=== PATIENT | female | born 1950 | race Caucasian/White ===

== ENCOUNTER 2017-02-09 17:14 | Emergency (ER) | payer MEDICARE, OTHER ==
[2017-02-09 17:44] LABS: BASOPHILS % 0.9 (0.0-1.5); EOSINOPHILS % 7.9 % (0.0-6.8); MEAN CORPUSCULAR HEMOGLOBIN 30.8 pg (28.0-34.0); MEAN CORPUSCULAR VOLUME 100.7 fl (80.0-100.0); MONOCYTES % 4.5 % (0.0-11.0); NEUTROPHILS # 3.8 # k/uL (1.4-7.7)
[2017-02-09 18:03] LABS: eGFR (African) 36; eGFR (Non-African) 30
--- NOTE | 2017-02-09 18:15 | Diagnostic Imaging Report ---
DONNA GASTELUM (MOVIE SHOT CAMERAMAN) - ER [facility] [address] [facility] [address] [place], [place]. [address] Report Submission Date: Feb 09, 2017 6:02:03 PM CDT Patient Study Name: ZOYA MARTIN Date: Feb 09, 2017 5:44:32 PM CDT Modality Type: CR Gender: F Description: CHEST : 52 Institution: [facility] Physician: DONNA GASTELUM (JASWINDER) - ER Examination: PA and lateral chest. History: Evaluate lung mcclure. Comparison exam: None available Findings: PA lateral chest demonstrate a normal cardiac and mediastinal silhouette. Chronic parenchymal and apical emphysematous changes. No focal infiltrate. No blunting of the costophrenic margins. Osseous structures are appropriate for age. Impression: Emphysematous changes. No acute pulmonary process. Electronically signed on Feb 09, 2017 6:02:03 PM CDT by: Yang STRINGER
--- NOTE | 2017-02-09 18:52 | ED Physician Documentation ---
Dyspnea - HISTORIAN Historian: patient - HPI Stated Complaint: SOA Chief Complaint: Dyspnea Onset: days ago (monday) Duration: worse Initiating Event: upper respiratory illness Severity: moderate Exacerbated By: coughing Associated Symptoms: chills, fever Further Comments: yes (66 year old female patient brought in by EMS for evaluation of dyspnea. Call from [place], reports patient was started on rocephin 1G IV yesterday and 500mg azithromycin per PCP. Reports chest xray showed infiltrate. Patient states she was no better, requested evaluation in ER. EMS gave albuterol neb in route. Patient reports neb "helped my breathing ". Sat 95% on 3L NC on arrival.) - ROS CONST: recent illness, weakness EYES/ENT: nasal drainage, nasal congestion. denies: problems with vision, sore throat GI/: none NEURO/PSYCH: denies: headache MS/SKIN/LYMPH: none - PAST HX Lung Disease: COPD, other (CVA, migraines) Cardiac Disease: CHF, other (HTN, HLD) PE Risk Factors: hypertension Other History: CVA, hyperlipidemia, other (anxiety, GERD, daily O2 at 3L) Allergies/Adverse Reactions: Allergies Allergy/AdvReac Type Severity Reaction Status Date / Time No Known Allergies Allergy Verified 02/09/17 18:52 Home Medications: Ambulatory Orders Medication Instructions Recorded Atorvastatin Calcium 20 mg PO QDAY 02/09/17 Budesonide/Formoterol Fumarate 1 puff PO BID 02/09/17 [Symbicort 160-4.5 Mcg Inhaler] Clonazepam 0.5 mg PO HS 02/09/17 Donepezil HCl [Aricept] 5 mg PO HS 02/09/17 Furosemide [Lasix] 20 mg PO DAILY 02/09/17 Gabapentin [Neurontin] 100 mg PO TID 02/09/17 HYDROcodone /APAP 5/325 [[place] 1 tab PO HS 02/09/17 5/325] Lansoprazole [Prevacid] 1 cap PO QDAY 02/09/17 Linaclotide [Linzess] 290 mcg PO QDAY 02/09/17 Lisinopril [Zestril] 30 mg PO HS 02/09/17 Melatonin [Melatin] 3 mg PO HS 02/09/17 Mirtazapine [Remeron] 7.5 mg PO HS 02/09/17 PARoxetine HCL [Paxil] 20 mg PO QD 02/09/17 Topiramate [Topamax] 50 mg PO BID 02/09/17 Trazodone HCl [Trazodone HCl] 1 tab PO HS 02/09/17 Venlafaxine HCl [Effexor Xr] 75 mg PO QDAY 02/09/17 - SOCIAL HX Smoking History: cigarettes - FAMILY HX Family History: denies: none - VITAL SIGNS Vital Signs: Vital Signs Temp Pulse Resp BP Pulse Ox 98.2 F 72 18 161/50 99 02/09/17 17:15 02/09/17 17:15 02/09/17 17:15 02/09/17 17:15 02/09/17 17:15 - REVIEWED ASSESSMENTS Nursing Assessment Reviewed: Yes Vitals Reviewed: Yes Progress - Progress Progress: Chest Xray with early or improving infiltrate. Encouraged patient to request PRN duonebs. ED Results Lab/Radiology - Lab Results Lab Results: Lab Results 02/09/17 02/09/17 17:30 17:30 WBC 6.80 K/ul K/ul (4.00-12.00) RBC 3.15 M/ul L M/ul (3.90-5.20) Hgb 9.7 g/dL L g/dL (12.0-16.0) Hct 31.7 % L % (34.5-46.5) MCV 100.7 fl H fl (80.0-100.0) MCH 30.8 pg pg (28.0-34.0) MCHC 30.6 g/dL g/dL (30.0-36.0) RDW 12.9 % % (11.3-14.3) Plt Count 270 K/mm3 K/mm3 (130-400) Neut % (Auto) 56.8 % % (39.0-79.0) Lymph % (Auto) 26.5 % % (16.0-50.0) [place] % (Auto) 4.5 % % (0.0-11.0) Eos % (Auto) 7.9 % H % (0.0-6.8) Baso % (Auto) 0.9 (0.0-1.5) Neut # (Auto) 3.8 # k/uL # k/uL (1.4-7.7) Lymph # (Auto) 1.8 # k/uL # k/uL (0.6-4.0) [place] # (Auto) 0.3 # k/uL # k/uL (0.0-0.9) Eos # (Auto) 0.5 # k/uL # k/uL (0.0-0.6) Baso # (Auto) 0.1 # k/uL # k/uL (0.0-0.5) Reactive Lymphs % 3.3 % % (0.0-5.0) Reactive Lymphs # 0.2 # k/uL # k/uL (0.0-0.8) Sodium 138 mmol/L mmol/L (137-145) Potassium 4.3 mmol/L mmol/L (3.5-5.1) Chloride 102 mmol/L mmol/L (98-107) Carbon Dioxide 29 mmol/L mmol/L (22-30) BUN 22 mg/dL H mg/dL (7-17) Creatinine 1.80 mg/dL H mg/dL (0.52-1.04) Estimated Creat Clear 32 Est GFR ( Amer) 36 L (60 - ) Est GFR (Non-Af Amer) 30 L (60 - ) Glucose 75 mg/dL mg/dL (74-106) Calcium 8.4 mg/dL mg/dL (8.4-10.2) Total Bilirubin < 0.1 mg/dL L mg/dL (0.2-1.3) AST 23 U/L U/L (15-46) ALT 29 U/L U/L (13-69) Alkaline Phosphatase 92 U/L U/L (38-126) Total Protein 6.3 g/dL g/dL (6.3-8.2) Albumin 3.3 g/dL L g/dL (3.5-5.0) - Radiology Radiology Impressions: Examination: PA and lateral chest. History: Evaluate lung mcclure. Comparison exam: None available Findings: PA lateral chest demonstrate a normal cardiac and mediastinal silhouette. Chronic parenchymal and apical emphysematous changes. No focal infiltrate. No blunting of the costophrenic margins. Osseous structures are appropriate for age. Impression: Emphysematous changes. No acute pulmonary process. - Orders Orders: ED Orders Category Date Time Status CHEST 2 VIEW [CHEST P.A.&LAT 2 VIEWS] [RAD] Stat Exams 02/09/17 Completed CBC/PLATELET/DIFF Routine Lab 02/09/17 17:30 Completed CMP [CMP] Routine Lab 02/09/17 17:30 Completed Dyspnea Physical Exam - EXAM General Appearance: mild distress EENT: eye inspection normal, ENT inspection normal, pharynx normal, no signs of dehydration, LESLI, no nystagmus, TM's nml Respiratory: no resp. distress, breath sounds nml, no pain on inspiration, speaks full sentences, other (3L NC; Sat 95-99%) CVS: reg. 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 Use patient's PRN Duoneb at least q6h for the next 4 days. Condition: Stable Disposition: 01 HOME, SELF-CARE Decision to Admit: NO Decision Time: 18:51
[2017-02-09 19:11] VITALS: BP 150/61
== END 2017-02-09 19:09 | disposition home or self-care (01) ==
LOC: ED 17:14
DX: J18.1 Lobar pneumonia, unspecified organism (principal)
CPT/HCPCS: 36415; 71020; 80053; 85025; 99283

== ENCOUNTER 2017-11-10 15:05 | Inpatient (IN) | payer MEDICARE, OTHER ==
[2017-11-10] MEDS ORDERED: methylPREDNISolone SOD SUCC 125 MG/2 ML VIAL IVP ONE (15:23)
[2017-11-10] MEDS ORDERED: 0.9 % SODIUM CHLORIDE 1,000 ML IV ONE (15:23)
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
[2017-11-10 16:23] LABS: MEAN CORPUSCULAR HEMOGLOBIN 30.2 pg (28.0-34.0); MEAN CORPUSCULAR VOLUME 104.6 fl (80.0-100.0)
[2017-11-10 16:35] LABS: eGFR (African) 26; eGFR (Non-African) 22
[2017-11-10] MEDS ORDERED: cefTRIAXone SODIUM 1 GM in 0.9 % SODIUM CHLORIDE 100 ML IV ONE (16:40)
[2017-11-10] MEDS ORDERED: cefTRIAXone SODIUM 1 GM VIAL ONE (16:48)
[2017-11-10] MEDS ORDERED: 0.9 % SODIUM CHLORIDE 100 ML IV ONE (16:49)
[2017-11-10 17:33] LABS: SEGMENTED NEUTROPHILS % 88 % (39-79)
[2017-11-10 17:34] LABS: ANISOCYTOSIS 1+ (NEGATIVE); MONOCYTES % 3 % (0-11); TOXIC VACUOLATION SLIGHT
[2017-11-10] MEDS ORDERED: IPRATROPIUM/ALBUTEROL SULFATE 3 ML AMPUL.NEB NEB PRN (18:49)
--- NOTE | 2017-11-10 18:53 | Diagnostic Imaging Report ---
ALFREDA JERRY [facility] [place] [facility] [address] [facility] [address] [place], [place]. [address] Report Submission Date: Nov 10, 2017 3:42:52 PM CDT Patient Study Name: ZOYA MARTIN Date: Nov 10, 2017 3:10:29 PM CDT Modality Type: DX Gender: F Description: CHEST : 52 Institution: [facility] [place] [facility] Physician: ALFREDA JERRY Examination: Portable chest History: Evaluate lungs. PCXR, COPD, SOA (Hx) Comparison exam: 09 February 2017 Findings: Single view of the chest demonstrates a normal cardiac silhouette. Prominent right hilum. Diffuse increased interstitial markings/infiltrates, right greater than left. Articular degenerative disease. Impression: Diffuse, right greater than left, parenchymal infiltrates. Consider obtaining a formal PA and lateral film to better evaluate lung mcclure. Electronically signed on Nov 10, 2017 3:42:52 PM CDT by: Yang STRINGER
[2017-11-10] MEDS ORDERED: ACETAMINOPHEN 500 MG TABLET PO PRN (19:24)
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
[2017-11-10] MEDS: cefTRIAXone SODIUM 1 GM in 0.9 % SODIUM CHLORIDE 50 ML IV SCH (19:37)
[2017-11-10] MEDS ORDERED: CLONAZEPAM PO SCH ×2 (21:00)
[2017-11-10] MEDS ORDERED: BUDESONIDE PO SCH (21:00)
[2017-11-10] MEDS ORDERED: FUROSEMIDE 40 MG TABLET PO SCH (21:00)
[2017-11-10] MEDS ORDERED: [UNRECOGNIZED DRUG - OTHER] PO SCH (21:00)
[2017-11-10] MEDS ORDERED: DONEPEZIL HCL PO SCH (21:00)
[2017-11-10] MEDS ORDERED: FORMOTEROL FUMARATE PO SCH (21:00)
[2017-11-10] MEDS: GABAPENTIN 100 MG CAPSULE PO SCH (21:33)
[2017-11-10] MEDS: 0.9 % SODIUM CHLORIDE 1,000 ML IV SCH (21:33)
[2017-11-10] MEDS: ATORVASTATIN CALCIUM 80 MG TABLET PO SCH ×2 (21:35)
[2017-11-10] MEDS: FLUTICASONE/SALMETEROL 250-50 INHALER IH SCH ×2 (21:38)
[2017-11-10] MEDS: traZODone HCL 50 MG TABLET PO SCH ×2 (21:39)
[2017-11-10] MEDS: MELATONIN 3 MG TABLET PO SCH ×2 (21:39)
[2017-11-10] MEDS: MIRTAZAPINE 15 MG TABLET PO SCH ×2 (21:40)
[2017-11-10] MEDS: risperiDONE 0.5 MG TABLET PO SCH ×2 (21:41)
[2017-11-10] MEDS: TOPIRAMATE 50 MG TABLET PO SCH ×2 (21:41)
[2017-11-10] MEDS: FUROSEMIDE 40 MG TABLET PO SCH (21:42)
[2017-11-10] MEDS: DONEPEZIL HCL 5 MG TABLET PO SCH (21:42)
[2017-11-10] MEDS: HYDROcodone /APAP 5/325 1 EACH TABLET PO SCH (21:42)
[2017-11-10] MEDS: AZITHROMYCIN 500 MG in 0.9 % SODIUM CHLORIDE 250 ML IV SCH (21:52)
[2017-11-10] MEDS: clonazePAM 0.5 MG TABLET PO SCH ×2 (22:09→22:10)
[2017-11-10 22:30] VITALS: BMI 25.2
[2017-11-11 07:18] LABS: EOSINOPHILS % 0.1 % (0.0-6.8); MEAN CORPUSCULAR HEMOGLOBIN 30.4 pg (28.0-34.0); MEAN CORPUSCULAR VOLUME 104.4 fl (80.0-100.0); NEUTROPHILS # 9.4 # k/uL (1.4-7.7)
[2017-11-11 07:24] LABS: eGFR (African) 27; eGFR (Non-African) 23
[2017-11-11] MEDS: 0.9 % SODIUM CHLORIDE 1,000 ML IV SCH ×2 (07:44→16:08)
[2017-11-11] MEDS ORDERED: Non-Formulary 1 EACH (Atorvastatin Calcium [Atorvastatin Calcium] 20 MG) PO SCH (09:00)
[2017-11-11] MEDS ORDERED: DOCUSATE SODIUM 100 MG CAPSULE PO SCH (09:00)
[2017-11-11] MEDS ORDERED: clonazePAM 0.5 MG TABLET PO SCH ×2 (09:00→12:00)
[2017-11-11] MEDS: DOCUSATE SODIUM 100 MG CAPSULE PO SCH (09:26)
[2017-11-11] MEDS: GABAPENTIN 100 MG CAPSULE PO SCH ×3 (09:26→17:58)
[2017-11-11] MEDS: LISINOPRIL 20 MG TABLET PO SCH (09:26)
[2017-11-11] MEDS: TOPIRAMATE 50 MG TABLET PO SCH ×2 (09:26→20:41)
[2017-11-11] MEDS: FLUTICASONE/SALMETEROL 250-50 INHALER IH SCH (09:27)
[2017-11-11] MEDS: FUROSEMIDE 40 MG TABLET PO SCH ×2 (09:27→20:38)
--- NOTE | 2017-11-11 11:52 | Inpatient Progress Note ---
Subjective - Required Recertification Statement I anticipate X number of days because-include discharge plan: 2 - Review of Systems Subjective: Patient reports she "needs her inhalers." STill coughing. STill with SOB. Objective - Exam Vitals and I&O: Vital Signs Temp 98.4 F 11/11/17 10:00 Pulse 82 11/11/17 10:08 Resp 24 11/11/17 10:00 BP 117/40 11/11/17 10:00 Pulse Ox 98 11/11/17 10:00 Intake & Output 11/10/17 11/10/17 11/11/17 11:59 23:59 11:59 Intake Total 2734 Balance 2734 Weight 62.596 kg 61.689 kg Intake: IV 2254 Left Forearm 2254 Oral 480 Other: Voiding Method Toilet Toilet # Voids 3 General: Alert, Oriented to Person, Oriented to Place, Cooperative, No acute distress. No: Oriented to Time Lungs: Speaks full Sentences, Wheezes Cardiovascular: Regular rate - Results Results: Laboratory Results WBC 10.20 K/ul (4.00-12.00) 11/11/17 07:00 RBC 2.61 M/ul (3.90-5.20) L 11/11/17 07:00 Hgb 8.0 g/dL (12.0-16.0) L 11/11/17 07:00 Hct 27.3 % (34.5-46.5) L 11/11/17 07:00 MCV 104.4 fl (80.0-100.0) H 11/11/17 07:00 MCH 30.4 pg (28.0-34.0) 11/11/17 07:00 MCHC 29.2 g/dL (30.0-36.0) L 11/11/17 07:00 RDW 13.4 % (11.3-14.3) 11/11/17 07:00 Plt Count 137 K/mm3 (130-400) 11/11/17 07:00 Neut % (Auto) 92.1 % (39.0-79.0) H 11/11/17 07:00 Lymph % (Auto) 3.7 % (16.0-50.0) L 11/11/17 07:00 [place] % (Auto) 3.0 % (0.0-11.0) 11/11/17 07:00 Eos % (Auto) 0.1 % (0.0-6.8) 11/11/17 07:00 Baso % (Auto) 0.0 (0.0-1.5) 11/11/17 07:00 Neut # (Auto) 9.4 # k/uL (1.4-7.7) H 11/11/17 07:00 Lymph # (Auto) 0.4 # k/uL (0.6-4.0) L 11/11/17 07:00 [place] # (Auto) 0.3 # k/uL (0.0-0.9) 11/11/17 07:00 Eos # (Auto) 0.0 # k/uL (0.0-0.6) 11/11/17 07:00 Baso # (Auto) 0.0 # k/uL (0.0-0.5) 11/11/17 07:00 Seg Neutrophils % 88 % (39-79) H 11/10/17 16:10 Band Neutrophils % 2 % (0-12) 11/10/17 16:10 Lymphocytes % 7 % (16-50) L 11/10/17 16:10 Reactive Lymphs % 1.0 % (0.0-5.0) 11/11/17 07:00 Monocytes % 3 % (0-11) 11/10/17 16:10 Reactive Lymphs # 0.1 # k/uL (0.0-0.8) 11/11/17 07:00 Toxic Vacuolation Slight 11/10/17 16:10 Plt Morphology Comment Normal (NORMAL) 11/10/17 16:10 Anisocytosis 1+ (NEGATIVE) H 11/10/17 16:10 PT 12.6 Seconds (9.4-11.6) H 11/11/17 06:00 INR 1.20 (0.9-1.2) 11/11/17 06:00 Sodium 142 mmol/L (136-145) 11/11/17 07:00 Potassium 4.4 mmol/L (3.5-5.1) 11/11/17 07:00 Chloride 112 mmol/L (98-107) H 11/11/17 07:00 Carbon Dioxide 22 mmol/L (22-30) 11/11/17 07:00 BUN 45 mg/dL (7-17) H 11/11/17 07:00 Creatinine 2.30 mg/dL (0.52-1.04) H 11/11/17 07:00 Estimated Creat Clear 27 11/11/17 07:00 Est GFR ( Amer) 27 (60-) L 11/11/17 07:00 Est GFR (Non-Af Amer) 23 (60-) L 11/11/17 07:00 Glucose 105 mg/dL (74-106) 11/11/17 07:00 Calcium 8.3 mg/dL (8.4-10.2) L 11/11/17 07:00 Total Bilirubin < 0.1 mg/dL (0.2-1.3) L 11/11/17 07:00 AST 19 U/L (15-46) 11/11/17 07:00 ALT 25 U/L (13-69) 11/11/17 07:00 Alkaline Phosphatase 64 U/L (38-126) 11/11/17 07:00 Creatine Kinase 124 U/L (30-135) 11/10/17 16:10 Troponin I < 0.03 ng/mL (0.03-0.06) L 11/10/17 16:10 NT-Pro-B Natriuret Pep 1522.9 pg/mL (15.0-125.0) H 11/10/17 16:10 Total Protein 5.9 g/dL (6.3-8.2) L 11/11/17 07:00 Albumin 2.9 g/dL (3.5-5.0) L 11/11/17 07:00 Assessment/Plan - Assessment/Plan (1) COPD exacerbation Status: Acute Current Visit: Yes Plan: Will hold off on inhaled steroids and do IV. Scheduled duonebs. (2) Pneumonia Status: Acute Current Visit: Yes Qualifiers: Pneumonia type: due to unspecified organism Laterality: bilateral Lung location: unspecified part of lung Qualified Code(s): J18.9 - Pneumonia, unspecified organism Assessment: Repeat 2 view CXR today. When taking good Po intake will change to oral antibiotics. Try to get sputum cultures.
[2017-11-11] MEDS: IPRATROPIUM/ALBUTEROL SULFATE 3 ML AMPUL.NEB NEB SCH ×3 (12:43→21:00)
[2017-11-11] MEDS: LORazepam 0.5 MG TABLET PO SCH ×2 (12:49→20:40)
--- NOTE | 2017-11-11 16:09 | Diagnostic Imaging Report ---
TRUPTI QUINTERO [facility] [address] [facility] [address] [address] Report Submission Date: Nov 11, 2017 1:39:41 PM CDT Patient Study Name: ZOYA MARTIN Date: Nov 11, 2017 1:04:06 PM CDT Modality Type: DX Gender: F Description: CHEST : 52 Institution: [facility] Physician: TRUPTI QUINTERO Chest two views History: Pneumonia, dyspnea, wheezing Findings: Extensive right lung and minimal left basilar infiltrate is unchanged since yesterday. Hyperinflation and a small right parapneumonic effusion are observed. Heart size is normal. Impression: 1. Right greater than left pneumonia. 2. Emphysema. 3. No change since yesterday. Electronically signed on Nov 11, 2017 1:39:41 PM CDT by: Erick STRINGER
[2017-11-11] MEDS ORDERED: cefTRIAXone SODIUM 1 GM VIAL ONE (17:46)
[2017-11-11] MEDS: cefTRIAXone SODIUM 1 GM in 0.9 % SODIUM CHLORIDE 50 ML IV SCH (17:58)
[2017-11-11] MEDS: AZITHROMYCIN 500 MG in 0.9 % SODIUM CHLORIDE 250 ML IV SCH (19:08)
[2017-11-11] MEDS: MELATONIN 3 MG TABLET PO SCH (20:37)
[2017-11-11] MEDS: risperiDONE 0.5 MG TABLET PO SCH (20:37)
[2017-11-11] MEDS: ATORVASTATIN CALCIUM 80 MG TABLET PO SCH (20:38)
[2017-11-11] MEDS: traZODone HCL 50 MG TABLET PO SCH (20:38)
[2017-11-11] MEDS: MIRTAZAPINE 15 MG TABLET PO SCH (20:40)
[2017-11-11] MEDS: HYDROcodone /APAP 5/325 1 EACH TABLET PO SCH (20:40)
[2017-11-11] MEDS: DONEPEZIL HCL 5 MG TABLET PO SCH (20:45)
[2017-11-11] MEDS ORDERED: methylPREDNISolone SOD SUCC 40 MG/ML VIAL ONE (20:45)
[2017-11-11] MEDS: methylPREDNISolone SOD SUCC 40 MG/ML VIAL IVP SCH (20:47)
[2017-11-12] MEDS: IPRATROPIUM/ALBUTEROL SULFATE 3 ML AMPUL.NEB NEB SCH ×6 (01:34→20:36)
[2017-11-12] MEDS ORDERED: methylPREDNISolone SOD SUCC 40 MG/ML VIAL ONE ×2 (01:39→11:10)
[2017-11-12] MEDS: 0.9 % SODIUM CHLORIDE 1,000 ML IV SCH ×2 (05:57→12:14)
[2017-11-12 07:16] LABS: MEAN CORPUSCULAR HEMOGLOBIN 30.5 pg (28.0-34.0); MEAN CORPUSCULAR VOLUME 99.1 fl (80.0-100.0)
[2017-11-12 07:34] LABS: HYPOCHROMASIA 1+ (NEGATIVE); SEGMENTED NEUTROPHILS % 97 % (39-79)
[2017-11-12] MEDS: DOCUSATE SODIUM 100 MG CAPSULE PO SCH (09:05)
[2017-11-12] MEDS: FUROSEMIDE 40 MG TABLET PO SCH ×2 (09:05→20:38)
[2017-11-12] MEDS: GABAPENTIN 100 MG CAPSULE PO SCH ×3 (09:05→17:59)
[2017-11-12] MEDS: LORazepam 0.5 MG TABLET PO SCH ×3 (09:09→20:37)
[2017-11-12] MEDS: LISINOPRIL 20 MG TABLET PO SCH (09:10)
[2017-11-12] MEDS: TOPIRAMATE 50 MG TABLET PO SCH ×2 (09:11→20:42)
[2017-11-12] MEDS: methylPREDNISolone SOD SUCC 40 MG/ML VIAL IVP SCH ×3 (09:35→20:44)
--- NOTE | 2017-11-12 10:57 | Inpatient Progress Note ---
Subjective - Required Recertification Statement I anticipate X number of days because-include discharge plan: 2 - Review of Systems Subjective: Patient reports she feels some better. Cough is improved but still has wheezing. Appetite better. Objective - Exam Vitals and I&O: Vital Signs Temp 98.8 F 11/12/17 08:20 Pulse 86 11/12/17 10:00 Resp 24 11/12/17 08:20 BP 154/70 11/12/17 08:20 Pulse Ox 96 11/12/17 08:20 Intake & Output 11/11/17 11/11/17 11/12/17 11:59 23:59 11:59 Intake Total 2734 300 3160 Balance 2734 300 3160 Weight 61.689 kg 63.049 kg Intake: IV 2254 2900 Left Forearm 2254 2900 Oral 480 300 260 Other: Voiding Method Toilet Toilet Toilet # Voids 3 2 2 # Bowel Movements 1 General: Alert, Oriented to Person, Oriented to Place, Cooperative, No acute distress. No: Oriented to Time Lungs: Wheezes Cardiovascular: Regular rate Abdomen: Normal bowel sounds - Results Results: Laboratory Results WBC 7.00 K/ul (4.00-12.00) 11/12/17 07:05 RBC 2.39 M/ul (3.90-5.20) L 11/12/17 07:05 Hgb 7.3 g/dL (12.0-16.0) L 11/12/17 07:05 Hct 23.7 % (34.5-46.5) L 11/12/17 07:05 MCV 99.1 fl (80.0-100.0) 11/12/17 07:05 MCH 30.5 pg (28.0-34.0) 11/12/17 07:05 MCHC 30.8 g/dL (30.0-36.0) 11/12/17 07:05 RDW 13.8 % (11.3-14.3) 11/12/17 07:05 Plt Count 150 K/mm3 (130-400) 11/12/17 07:05 Neut % (Auto) 92.1 % (39.0-79.0) H 11/11/17 07:00 Lymph % (Auto) 3.7 % (16.0-50.0) L 11/11/17 07:00 [place] % (Auto) 3.0 % (0.0-11.0) 11/11/17 07:00 Eos % (Auto) 0.1 % (0.0-6.8) 11/11/17 07:00 Baso % (Auto) 0.0 (0.0-1.5) 11/11/17 07:00 Neut # (Auto) 9.4 # k/uL (1.4-7.7) H 11/11/17 07:00 Lymph # (Auto) 0.4 # k/uL (0.6-4.0) L 11/11/17 07:00 [place] # (Auto) 0.3 # k/uL (0.0-0.9) 11/11/17 07:00 Eos # (Auto) 0.0 # k/uL (0.0-0.6) 11/11/17 07:00 Baso # (Auto) 0.0 # k/uL (0.0-0.5) 11/11/17 07:00 Seg Neutrophils % 97 % (39-79) H 11/12/17 07:05 Band Neutrophils % 2 % (0-12) 11/12/17 07:05 Lymphocytes % 1 % (16-50) L 11/12/17 07:05 Reactive Lymphs % 1.0 % (0.0-5.0) 11/11/17 07:00 Monocytes % 3 % (0-11) 11/10/17 16:10 Reactive Lymphs # 0.1 # k/uL (0.0-0.8) 11/11/17 07:00 Toxic Vacuolation Slight 11/10/17 16:10 Plt Morphology Comment Normal (NORMAL) 11/12/17 07:05 Hypochromasia 1+ (NEGATIVE) H 11/12/17 07:05 Anisocytosis 1+ (NEGATIVE) H 11/10/17 16:10 RBC Morph Comment Abnormal (NORMAL) H 11/12/17 07:05 PT 12.6 Seconds (9.4-11.6) H 11/11/17 06:00 INR 1.20 (0.9-1.2) 11/11/17 06:00 Sodium 145 mmol/L (136-145) 11/12/17 07:05 Potassium 4.1 mmol/L (3.5-5.1) 11/12/17 07:05 Chloride 114 mmol/L (98-107) H 11/12/17 07:05 Carbon Dioxide 24 mmol/L (22-30) 11/12/17 07:05 BUN 47 mg/dL (7-17) H 11/12/17 07:05 Creatinine 2.30 mg/dL (0.52-1.04) H 11/12/17 07:05 Estimated Creat Clear 28 11/12/17 07:05 Est GFR ( Amer) 27 (60-) L 11/12/17 07:05 Est GFR (Non-Af Amer) 23 (60-) L 11/12/17 07:05 Glucose 132 mg/dL (74-106) H 11/12/17 07:05 Calcium 8.4 mg/dL (8.4-10.2) 11/12/17 07:05 Total Bilirubin < 0.1 mg/dL (0.2-1.3) L 11/11/17 07:00 AST 19 U/L (15-46) 11/11/17 07:00 ALT 25 U/L (13-69) 11/11/17 07:00 Alkaline Phosphatase 64 U/L (38-126) 11/11/17 07:00 Creatine Kinase 124 U/L (30-135) 11/10/17 16:10 Troponin I < 0.03 ng/mL (0.03-0.06) L 11/10/17 16:10 NT-Pro-B Natriuret Pep 1522.9 pg/mL (15.0-125.0) H 11/10/17 16:10 Total Protein 5.9 g/dL (6.3-8.2) L 11/11/17 07:00 Albumin 2.9 g/dL (3.5-5.0) L 11/11/17 07:00 Vitamin B12 >2000 pg/mL (211-946) H 11/10/17 Unknown Folate 4.0 ng/mL (>4.50) L 11/10/17 Unknown Assessment/Plan - Assessment/Plan (1) COPD exacerbation Status: Acute Current Visit: Yes Plan: Will increase solumedrol to 80 mg q8hr IV. Continue duonebs. (2) Pneumonia Status: Acute Current Visit: Yes Qualifiers: Pneumonia type: due to unspecified organism Laterality: bilateral Lung location: unspecified part of lung Qualified Code(s): J18.9 - Pneumonia, unspecified organism Plan: Po intake is better so will change to oral zithromax and augmentin. (3) Anemia Status: Chronic Current Visit: Yes Qualifiers: Anemia type: unspecified type Qualified Code(s): D64.9 - Anemia, unspecified Plan: [place] reports Hgb 7.9 on 10-24. She has an elevated MCV. She takes B12 shots every 2 weeks. Here, her B12 is >2000. Folate here is low so will start replacement. She is on FeSO4 at [facility] [place] but refusing it. Staff there can't find iron studies. Will get these today. May give IV iron prior to d/c. Suspect HBG lower due to fluid hydration. (4) Renal insufficiency Status: Chronic Current Visit: Yes Plan: According to [place], BUN/Cr is normally around 30-40 and 2-3. Will stop IVF today as weight is up some and patient has a h/o CHF.
--- NOTE | 2017-11-12 11:16 | Inpatient Progress Note ---
Subjective - Review of Systems Subjective: Patient reports she "needs her inhalers." STill coughing. STill with SOB. Objective - Exam Vitals and I&O: Vital Signs Temp 98.8 F 11/12/17 08:20 Pulse 86 11/12/17 10:00 Resp 24 11/12/17 08:20 BP 154/70 11/12/17 08:20 Pulse Ox 96 11/12/17 08:20 Intake & Output 11/11/17 11/11/17 11/12/17 11:59 23:59 11:59 Intake Total 2734 300 3160 Balance 2734 300 3160 Weight 61.689 kg 63.049 kg Intake: IV 2254 2900 Left Forearm 2254 2900 Oral 480 300 260 Other: Voiding Method Toilet Toilet Toilet # Voids 3 2 2 # Bowel Movements 1 - Results Results: Laboratory Results WBC 7.00 K/ul (4.00-12.00) 11/12/17 07:05 RBC 2.39 M/ul (3.90-5.20) L 11/12/17 07:05 Hgb 7.3 g/dL (12.0-16.0) L 11/12/17 07:05 Hct 23.7 % (34.5-46.5) L 11/12/17 07:05 MCV 99.1 fl (80.0-100.0) 11/12/17 07:05 MCH 30.5 pg (28.0-34.0) 11/12/17 07:05 MCHC 30.8 g/dL (30.0-36.0) 11/12/17 07:05 RDW 13.8 % (11.3-14.3) 11/12/17 07:05 Plt Count 150 K/mm3 (130-400) 11/12/17 07:05 Neut % (Auto) 92.1 % (39.0-79.0) H 11/11/17 07:00 Lymph % (Auto) 3.7 % (16.0-50.0) L 11/11/17 07:00 [place] % (Auto) 3.0 % (0.0-11.0) 11/11/17 07:00 Eos % (Auto) 0.1 % (0.0-6.8) 11/11/17 07:00 Baso % (Auto) 0.0 (0.0-1.5) 11/11/17 07:00 Neut # (Auto) 9.4 # k/uL (1.4-7.7) H 11/11/17 07:00 Lymph # (Auto) 0.4 # k/uL (0.6-4.0) L 11/11/17 07:00 [place] # (Auto) 0.3 # k/uL (0.0-0.9) 11/11/17 07:00 Eos # (Auto) 0.0 # k/uL (0.0-0.6) 11/11/17 07:00 Baso # (Auto) 0.0 # k/uL (0.0-0.5) 11/11/17 07:00 Seg Neutrophils % 97 % (39-79) H 11/12/17 07:05 Band Neutrophils % 2 % (0-12) 11/12/17 07:05 Lymphocytes % 1 % (16-50) L 11/12/17 07:05 Reactive Lymphs % 1.0 % (0.0-5.0) 11/11/17 07:00 Monocytes % 3 % (0-11) 11/10/17 16:10 Reactive Lymphs # 0.1 # k/uL (0.0-0.8) 11/11/17 07:00 Toxic Vacuolation Slight 11/10/17 16:10 Plt Morphology Comment Normal (NORMAL) 11/12/17 07:05 Hypochromasia 1+ (NEGATIVE) H 11/12/17 07:05 Anisocytosis 1+ (NEGATIVE) H 11/10/17 16:10 RBC Morph Comment Abnormal (NORMAL) H 11/12/17 07:05 PT 12.6 Seconds (9.4-11.6) H 11/11/17 06:00 INR 1.20 (0.9-1.2) 11/11/17 06:00 Sodium 145 mmol/L (136-145) 11/12/17 07:05 Potassium 4.1 mmol/L (3.5-5.1) 11/12/17 07:05 Chloride 114 mmol/L (98-107) H 11/12/17 07:05 Carbon Dioxide 24 mmol/L (22-30) 11/12/17 07:05 BUN 47 mg/dL (7-17) H 11/12/17 07:05 Creatinine 2.30 mg/dL (0.52-1.04) H 11/12/17 07:05 Estimated Creat Clear 28 11/12/17 07:05 Est GFR ( Amer) 27 (60-) L 11/12/17 07:05 Est GFR (Non-Af Amer) 23 (60-) L 11/12/17 07:05 Glucose 132 mg/dL (74-106) H 11/12/17 07:05 Calcium 8.4 mg/dL (8.4-10.2) 11/12/17 07:05 Total Bilirubin < 0.1 mg/dL (0.2-1.3) L 11/11/17 07:00 AST 19 U/L (15-46) 11/11/17 07:00 ALT 25 U/L (13-69) 11/11/17 07:00 Alkaline Phosphatase 64 U/L (38-126) 11/11/17 07:00 Creatine Kinase 124 U/L (30-135) 11/10/17 16:10 Troponin I < 0.03 ng/mL (0.03-0.06) L 11/10/17 16:10 NT-Pro-B Natriuret Pep 1522.9 pg/mL (15.0-125.0) H 11/10/17 16:10 Total Protein 5.9 g/dL (6.3-8.2) L 11/11/17 07:00 Albumin 2.9 g/dL (3.5-5.0) L 11/11/17 07:00 Vitamin B12 >2000 pg/mL (211-946) H 11/10/17 Unknown Folate 4.0 ng/mL (>4.50) L 11/10/17 Unknown Assessment/Plan - Assessment/Plan (1) COPD exacerbation Status: Acute Current Visit: Yes (2) Pneumonia Status: Acute Current Visit: Yes Qualifiers: Pneumonia type: due to unspecified organism Laterality: bilateral Lung location: unspecified part of lung Qualified Code(s): J18.9 - Pneumonia, unspecified organism
[2017-11-12] MEDS: FERROUS SULFATE 325 MG TABLET PO SCH ×2 (11:30→17:58)
[2017-11-12] MEDS: AMOXICILLIN/POT 875/125 1 EACH PO SCH (17:58)
[2017-11-12] MEDS: DONEPEZIL HCL 5 MG TABLET PO SCH (20:37)
[2017-11-12] MEDS: traZODone HCL 50 MG TABLET PO SCH (20:38)
[2017-11-12] MEDS: ATORVASTATIN CALCIUM 80 MG TABLET PO SCH (20:38)
[2017-11-12] MEDS: HYDROcodone /APAP 5/325 1 EACH TABLET PO SCH (20:39)
[2017-11-12] MEDS: risperiDONE 0.5 MG TABLET PO SCH (20:39)
[2017-11-12] MEDS: MELATONIN 3 MG TABLET PO SCH (20:39)
[2017-11-12] MEDS: MIRTAZAPINE 15 MG TABLET PO SCH (20:39)
[2017-11-12] MEDS ORDERED: methylPREDNISolone SOD SUCC 125 MG/2 ML VIAL ONE (20:42)
[2017-11-13] MEDS: IPRATROPIUM/ALBUTEROL SULFATE 3 ML AMPUL.NEB NEB SCH ×6 (00:28→20:46)
[2017-11-13] MEDS ORDERED: methylPREDNISolone SOD SUCC 125 MG/2 ML VIAL ONE (04:05)
[2017-11-13] MEDS: methylPREDNISolone SOD SUCC 40 MG/ML VIAL IVP SCH ×3 (05:08→20:28)
[2017-11-13 07:18] LABS: MEAN CORPUSCULAR HEMOGLOBIN 30.4 pg (28.0-34.0); MEAN CORPUSCULAR VOLUME 98.3 fl (80.0-100.0)
--- NOTE | 2017-11-13 07:39 | Inpatient Progress Note ---
Subjective - Required Recertification Statement I anticipate X number of days because-include discharge plan: 1 - Review of Systems Subjective: Patient continues to say she feels better. Hasn't been up much. Desats and gets SOB when up moving around. Objective - Exam Vitals and I&O: Vital Signs Temp 99.9 F H 11/13/17 06:00 Pulse 84 11/13/17 02:33 Resp 24 11/13/17 06:17 BP 160/68 11/13/17 06:00 Pulse Ox 96 11/13/17 06:00 Intake & Output 11/12/17 11/12/17 11/13/17 11:59 23:59 11:59 Intake Total 3160 240 300 Balance 3160 240 300 Weight 63.049 kg 63.503 kg Intake: IV 2900 Left Forearm 2900 Oral 260 240 300 Other: Voiding Method Toilet Toilet Toilet # Voids 2 2 4 # Bowel Movements 0 General: Alert, Oriented to Person, Oriented to Place, Oriented to Time Lungs: Wheezes (improved/) Cardiovascular: Regular rate - Results Results: Laboratory Results WBC 5.60 K/ul (4.00-12.00) 11/13/17 06:35 RBC 2.40 M/ul (3.90-5.20) L 11/13/17 06:35 Hgb 7.3 g/dL (12.0-16.0) L 11/13/17 06:35 Hct 23.6 % (34.5-46.5) L 11/13/17 06:35 MCV 98.3 fl (80.0-100.0) 11/13/17 06:35 MCH 30.4 pg (28.0-34.0) 11/13/17 06:35 MCHC 30.9 g/dL (30.0-36.0) 11/13/17 06:35 RDW 14.0 % (11.3-14.3) 11/13/17 06:35 Plt Count 156 K/mm3 (130-400) 11/13/17 06:35 Neut % (Auto) 92.1 % (39.0-79.0) H 11/11/17 07:00 Lymph % (Auto) 3.7 % (16.0-50.0) L 11/11/17 07:00 [place] % (Auto) 3.0 % (0.0-11.0) 11/11/17 07:00 Eos % (Auto) 0.1 % (0.0-6.8) 11/11/17 07:00 Baso % (Auto) 0.0 (0.0-1.5) 11/11/17 07:00 Neut # (Auto) 9.4 # k/uL (1.4-7.7) H 11/11/17 07:00 Lymph # (Auto) 0.4 # k/uL (0.6-4.0) L 11/11/17 07:00 [place] # (Auto) 0.3 # k/uL (0.0-0.9) 11/11/17 07:00 Eos # (Auto) 0.0 # k/uL (0.0-0.6) 11/11/17 07:00 Baso # (Auto) 0.0 # k/uL (0.0-0.5) 11/11/17 07:00 Seg Neutrophils % 97 % (39-79) H 11/12/17 07:05 Band Neutrophils % 2 % (0-12) 11/12/17 07:05 Lymphocytes % 1 % (16-50) L 11/12/17 07:05 Reactive Lymphs % 1.0 % (0.0-5.0) 11/11/17 07:00 Monocytes % 3 % (0-11) 11/10/17 16:10 Reactive Lymphs # 0.1 # k/uL (0.0-0.8) 11/11/17 07:00 Toxic Vacuolation Slight 11/10/17 16:10 Plt Morphology Comment Normal (NORMAL) 11/12/17 07:05 Hypochromasia 1+ (NEGATIVE) H 11/12/17 07:05 Anisocytosis 1+ (NEGATIVE) H 11/10/17 16:10 RBC Morph Comment Abnormal (NORMAL) H 11/12/17 07:05 PT 12.6 Seconds (9.4-11.6) H 11/11/17 06:00 INR 1.20 (0.9-1.2) 11/11/17 06:00 Sodium 144 mmol/L (136-145) 11/13/17 06:35 Potassium 3.5 mmol/L (3.5-5.1) 11/13/17 06:35 Chloride 113 mmol/L (98-107) H 11/13/17 06:35 Carbon Dioxide 24 mmol/L (22-30) 11/13/17 06:35 BUN 49 mg/dL (7-17) H 11/13/17 06:35 Creatinine 2.40 mg/dL (0.52-1.04) H 11/13/17 06:35 Estimated Creat Clear 27 11/13/17 06:35 Est GFR ( Amer) 26 (60-) L 11/13/17 06:35 Est GFR (Non-Af Amer) 22 (60-) L 11/13/17 06:35 Glucose 136 mg/dL (74-106) H 11/13/17 06:35 Calcium 8.9 mg/dL (8.4-10.2) 11/13/17 06:35 Total Bilirubin < 0.1 mg/dL (0.2-1.3) L 11/11/17 07:00 AST 19 U/L (15-46) 11/11/17 07:00 ALT 25 U/L (13-69) 11/11/17 07:00 Alkaline Phosphatase 64 U/L (38-126) 11/11/17 07:00 Creatine Kinase 124 U/L (30-135) 11/10/17 16:10 Troponin I < 0.03 ng/mL (0.03-0.06) L 11/10/17 16:10 NT-Pro-B Natriuret Pep 1522.9 pg/mL (15.0-125.0) H 11/10/17 16:10 Total Protein 5.9 g/dL (6.3-8.2) L 11/11/17 07:00 Albumin 2.9 g/dL (3.5-5.0) L 11/11/17 07:00 Vitamin B12 >2000 pg/mL (211-946) H 11/10/17 Unknown Folate 4.0 ng/mL (>4.50) L 11/10/17 Unknown Assessment/Plan - Assessment/Plan (1) COPD exacerbation Status: Acute Current Visit: Yes Plan: continue IV steroids. (2) Pneumonia Status: Acute Current Visit: Yes Qualifiers: Pneumonia type: due to unspecified organism Laterality: bilateral Lung location: unspecified part of lung Qualified Code(s): J18.9 - Pneumonia, unspecified organism Plan: Low grade temp. Will repeat CXR. Start IS. (3) Anemia Status: Chronic Current Visit: Yes Qualifiers: Anemia type: unspecified type Qualified Code(s): D64.9 - Anemia, unspecified Plan: Awaiting iron studies. Consider IV venofer. (4) Renal insufficiency Status: Chronic Current Visit: Yes
[2017-11-13] MEDS: LISINOPRIL 20 MG TABLET PO SCH (09:41)
[2017-11-13] MEDS: FOLIC ACID 1 MG TABLET PO SCH (09:41)
[2017-11-13] MEDS: GABAPENTIN 100 MG CAPSULE PO SCH ×3 (09:42→17:15)
[2017-11-13] MEDS: FUROSEMIDE 40 MG TABLET PO SCH ×2 (09:42→20:26)
[2017-11-13] MEDS: TOPIRAMATE 50 MG TABLET PO SCH ×2 (09:43→20:27)
[2017-11-13] MEDS: DOCUSATE SODIUM 100 MG CAPSULE PO SCH (09:43)
[2017-11-13] MEDS: FERROUS SULFATE 325 MG TABLET PO SCH ×2 (10:58→17:16)
[2017-11-13] MEDS: AMOXICILLIN/POT 875/125 1 EACH PO SCH ×2 (10:58→17:15)
[2017-11-13] MEDS: LORazepam 0.5 MG TABLET PO SCH ×3 (10:58→18:35)
--- NOTE | 2017-11-13 13:53 | Diagnostic Imaging Report ---
[facility] [address] [facility].[address] [address] Report Submission Date: Nov 13, 2017 10:16:52 AM CDT Patient Study Name: ZOYA MARTIN Date: Nov 13, 2017 7:52:11 AM CDT Modality Type: DX Gender: F Description: CHEST : 52 Institution: [facility] Physician: TRUPTI QUINTERO Examination: PA and lateral chest. History: Evaluate lung mcclure. FEVER HX OF PNEUMONIA (Hx) Comparison exam: 11 November 2017 Findings: PA lateral chest demonstrate a normal cardiac and mediastinal silhouette. Vascular calcifications involving aortic arch. Continued parenchymal haziness, right greater than left. No definite costophrenic margin blunting. Articular degenerative changes. Impression: Continued, right greater than left, parenchymal infiltrates - slightly improved from previous examination. Electronically signed on Nov 13, 2017 10:16:52 AM CDT by: Yang STRINGER
[2017-11-13] MEDS ORDERED: AZITHROMYCIN 250 MG TABLET PO ONE (18:00)
[2017-11-13 20:22] LABS: IRON SERUM 29 ug/dL (37-145); SERUM IRON 29 ug/dL (37-145)
[2017-11-13] MEDS: traZODone HCL 50 MG TABLET PO SCH (20:25)
[2017-11-13] MEDS: MELATONIN 3 MG TABLET PO SCH (20:26)
[2017-11-13] MEDS: DONEPEZIL HCL 5 MG TABLET PO SCH (20:26)
[2017-11-13] MEDS: ATORVASTATIN CALCIUM 80 MG TABLET PO SCH (20:26)
[2017-11-13] MEDS: MIRTAZAPINE 15 MG TABLET PO SCH (20:27)
[2017-11-13] MEDS: risperiDONE 0.5 MG TABLET PO SCH (20:33)
[2017-11-13] MEDS: HYDROcodone /APAP 5/325 1 EACH TABLET PO SCH (20:33)
[2017-11-14] MEDS: IPRATROPIUM/ALBUTEROL SULFATE 3 ML AMPUL.NEB NEB SCH ×4 (00:39→14:15)
[2017-11-14] MEDS: FUROSEMIDE 40 MG TABLET PO SCH ×3 (05:56→13:32)
[2017-11-14] MEDS: methylPREDNISolone SOD SUCC 40 MG/ML VIAL IVP SCH (05:57)
[2017-11-14 07:12] LABS: eGFR (African) 25; eGFR (Non-African) 21
[2017-11-14] MEDS: LORazepam 0.5 MG TABLET PO SCH ×2 (08:11→12:29)
[2017-11-14] MEDS: LISINOPRIL 20 MG TABLET PO SCH (08:11)
[2017-11-14] MEDS: AMOXICILLIN/POT 875/125 1 EACH PO SCH (08:12)
[2017-11-14] MEDS: TOPIRAMATE 50 MG TABLET PO SCH (08:12)
[2017-11-14] MEDS: GABAPENTIN 100 MG CAPSULE PO SCH ×2 (08:12→13:32)
[2017-11-14] MEDS: FOLIC ACID 1 MG TABLET PO SCH (08:12)
[2017-11-14] MEDS: DOCUSATE SODIUM 100 MG CAPSULE PO SCH (08:12)
[2017-11-14] MEDS ORDERED: IRON SUCROSE COMPLEX 20 MG/ML 10ML VIAL IV ONE (08:45)
[2017-11-14 09:34] LABS: MEAN CORPUSCULAR HEMOGLOBIN 29.6 pg (28.0-34.0); MEAN CORPUSCULAR VOLUME 97.9 fl (80.0-100.0)
[2017-11-14] MEDS ORDERED: IRON SUCROSE COMPLEX 200 MG in 0.9 % SODIUM CHLORIDE 250 ML IV SCH (10:00)
[2017-11-14 10:05] VITALS: BP 147/59
[2017-11-14] MEDS: FERROUS SULFATE 325 MG TABLET PO SCH (11:12)
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
== END 2017-11-14 13:55 | disposition home or self-care (01) | DRG 195 ==
LOC: ED 15:05 → SOUTH 17:04
PROVIDERS: ADMIT Family Medicine; ATTEND Family Medicine
DX: J18.9 Pneumonia, unspecified organism (principal); J44.9 Chronic obstructive pulmonary disease, unspecified; I10 Essential (primary) hypertension; G30.9 Alzheimer's disease, unspecified; F02.80 Dementia in other diseases classified elsewhere, unspecified severity, without behavioral disturbance, psychotic disturbance, mood disturbance, and anxiety; I48.91 Unspecified atrial fibrillation; K21.9 Gastro-esophageal reflux disease without esophagitis; K59.01 Slow transit constipation; D50.9 Iron deficiency anemia, unspecified
CPT/HCPCS: 36415; 71045; 71046; 80048; 80053; 82550; 82608; 82728; 82746; 83540; 83550; 83880; 84484; 85025; 85027; 85610; 87040; 94640; 94760; 96365; 96367; 96375; 99222; 99232; 99238; J0456; J0696; J1756; J2920; J2930; J3490; J7050; A9270-GY; J1030; J7030

== ENCOUNTER 2017-11-26 16:51 | Inpatient (IN) | payer MEDICARE, OTHER ==
[2017-11-26 17:16] LABS: BASOPHILS % 0.2 (0.0-1.5); EOSINOPHILS % 1.3 % (0.0-6.8); MEAN CORPUSCULAR HEMOGLOBIN 29.2 pg (28.0-34.0); MEAN CORPUSCULAR VOLUME 99.8 fl (80.0-100.0); MONOCYTES % 4.2 % (0.0-11.0); NEUTROPHILS # 6.8 # k/uL (1.4-7.7)
[2017-11-26 17:50] LABS: eGFR (Non-African) 23
--- NOTE | 2017-11-26 17:50 | ED Physician Documentation ---
General Adult - VITAL SIGNS Vital Signs: Vital Signs Temp Pulse Resp BP Pulse Ox 100.2 F H 82 18 134/57 93 11/26/17 16:53 11/26/17 18:30 11/26/17 16:53 11/26/17 16:53 11/26/17 18:30 <Jennifer Henriquez - Last Filed: 11/26/17 19:29> - HISTORIAN Historian: patient, paramedics - HPI Stated Complaint: dyspnea, recent pneumonia Chief Complaint: General Adult Onset: hours Timing: still present Severity: moderate Further Comments: yes (Pt is a 66 yo female Residential pt with sob. Pt was recently admitted, on 11/10/17, for community acquired pneumonia. Today pt was sob at alf with SpO2 in 80%'s there. Pt was given a neb tx with EMS and SpO2 was in mid 90% on 4 L NC. Pt has had some chest/epigastric pain, that did not radiate and some mild nausea. No diaphoresis.) - ROS CONST: weakness EYES/ENT: none CVS/RESP: chest pain, shortness of breath GI/: nausea MS/SKIN/LYMPH: none NEURO/PSYCH: other (weakness) - PAST HX Past History: other (HTN, Alzheimer's dz, COPD, hx afib, CKD, GERD, iron deficiency anemia, constipation, CHF, HLD, Anxiety/Depression) Surgeries/Procedures: cholecystectomy, other (catarac removal) - SOCIAL HX Smoking History: cigarettes - FAMILY HX Family History: Yes (Mother: dementia; Father: advanced age) - VITAL SIGNS Vital Signs: Vital Signs Temp Pulse Resp BP Pulse Ox 147/59 11/14/17 10:46 - REVIEWED ASSESSMENTS Nursing Assessment Reviewed: Yes Vitals Reviewed: Yes <Rodrigo Medrano - Last Filed: 11/29/17 12:08> - PAST HX Allergies/Adverse Reactions: Allergies Allergy/AdvReac Type Severity Reaction Status Date / Time aspirin Allergy Verified 11/26/17 18:17 Home Medications: Ambulatory Orders Medication Instructions Recorded Atorvastatin Calcium 20 mg PO QDAY 02/09/17 Budesonide/Formoterol Fumarate 1 puff PO BID 02/09/17 [Symbicort 160-4.5 Mcg Inhaler] Gabapentin [Neurontin] 100 mg PO TID 02/09/17 HYDROcodone /APAP 5/325 [[place] 1 tab PO HS 02/09/17 5/325] Lansoprazole [Prevacid] 1 cap PO QDAY 02/09/17 Linaclotide [Linzess] 290 mcg PO QDAY 02/09/17 Lisinopril [Zestril] 30 mg PO HS 02/09/17 Melatonin [Melatin] 3 mg PO HS 02/09/17 Mirtazapine [Remeron] 7.5 mg PO HS 02/09/17 Venlafaxine HCl [Effexor Xr] 75 mg PO QDAY 02/09/17 Clonazepam [Klonopin] 1 tab PO BID 11/10/17 Clonazepam [Klonopin] 1 tab PO HS 11/10/17 Cyanocobalamin (Vitamin B-12) 1,000 mcg IM MONTH 11/10/17 [B-12 Compliance] Docusate Sodium [Colace] 1 tab PO DAILY 11/10/17 Donepezil HCl [Aricept] 1 tab PO HS 11/10/17 Ferrous Sulfate 1 tab PO DAILY 11/10/17 Furosemide [Lasix] 1 tab PO BID 11/10/17 Ipratropium/Albuterol Sulfate 1 vial INH QID 11/10/17 [Duoneb] Risperidone [Risperdal] 1 tab PO HS 11/10/17 Topiramate [Topamax] 1 tab PO BID 11/10/17 Trazodone HCl [Desyrel] 1 tab PO HS 11/10/17 Venlafaxine HCl [Venlafaxine HCl 1 tab PO DAILY 11/10/17 ER] Amoxicillin/Potassium Clav 1 each PO BID #10 tablet 11/28/17 [Augmentin 875-125 Tablet] Progress - Progress Progress: 1919: Discussed case with Dr Ordonez he is agreeable to admission DG <Jennifer Henriquez - Last Filed: 11/26/17 19:29> - Progress Progress: CXR: The heart size is mildly enlarged. No pleural effusion or pneumothorax. There is right upper lobe pleural base infiltrate noted which appears worse on today's exam. Impression: Increasing right upper lobe pleural base infiltrate. Duoneb HFN improved Pt comfortable after Duoneb on 4 L NC O2 Care transferred to Jennifer Henriquez at 1900. - EKG/XRAY/CT EKG: NSR (HR=82; T-wave inversions in I, aVL.) <Rodrigo Medrano - Last Filed: 11/29/17 12:08> ED Results Lab/Radiology - Lab Results Lab Results: Lab Results 11/26/17 11/26/17 11/26/17 18:51 17:06 17:06 WBC RBC Hgb Hct MCV MCH MCHC RDW Plt Count Neut % (Auto) Lymph % (Auto) [place] % (Auto) Eos % (Auto) Baso % (Auto) Neut # (Auto) Lymph # (Auto) [place] # (Auto) Eos # (Auto) Baso # (Auto) Reactive Lymphs % Reactive Lymphs # D-Dimer 4843 ng/mL H ng/mL > 5000 ng/mL H ng/mL (6.0-682) (6.0-682) Sodium 140 mmol/L mmol/L (136-145) Potassium 4.4 mmol/L mmol/L (3.5-5.1) Chloride 102 mmol/L mmol/L (98-107) Carbon Dioxide 29 mmol/L mmol/L (22-30) BUN 27 mg/dL H mg/dL (7-17) Creatinine 2.30 mg/dL H mg/dL (0.52-1.04) Est GFR ( Amer) 27 L (60 - ) Est GFR (Non-Af Amer) 23 L (60 - ) Glucose 100 mg/dL mg/dL (74-106) Calcium 7.4 mg/dL L mg/dL (8.4-10.2) Total Bilirubin 0.1 mg/dL L mg/dL (0.2-1.3) AST 16 U/L U/L (15-46) ALT 24 U/L U/L (13-69) Alkaline Phosphatase 98 U/L U/L (38-126) Creatine Kinase 81 U/L U/L (30-135) CK-MB (CK-2) 13.0 ng/mL H ng/mL (0.0-5.6) Troponin I 0.01 ng/mL L ng/mL (0.03-0.06) NT-Pro-B Natriuret Pep 3180.1 pg/mL H pg/mL (15.0-125.0) Total Protein 6.8 g/dL g/dL (6.3-8.2) Albumin 3.3 g/dL L g/dL (3.5-5.0) 11/26/17 17:06 WBC 8.30 K/ul K/ul (4.00-12.00) RBC 2.83 M/ul L M/ul (3.90-5.20) Hgb 8.3 g/dL L g/dL (12.0-16.0) Hct 28.3 % L % (34.5-46.5) MCV 99.8 fl fl (80.0-100.0) MCH 29.2 pg pg (28.0-34.0) MCHC 29.2 g/dL L g/dL (30.0-36.0) RDW 14.1 % % (11.3-14.3) Plt Count 281 K/mm3 K/mm3 (130-400) Neut % (Auto) 81.9 % H % (39.0-79.0) Lymph % (Auto) 11.3 % L % (16.0-50.0) [place] % (Auto) 4.2 % % (0.0-11.0) Eos % (Auto) 1.3 % % (0.0-6.8) Baso % (Auto) 0.2 (0.0-1.5) Neut # (Auto) 6.8 # k/uL # k/uL (1.4-7.7) Lymph # (Auto) 0.9 # k/uL # k/uL (0.6-4.0) [place] # (Auto) 0.4 # k/uL # k/uL (0.0-0.9) Eos # (Auto) 0.1 # k/uL # k/uL (0.0-0.6) Baso # (Auto) 0.0 # k/uL # k/uL (0.0-0.5) Reactive Lymphs % 1.2 % % (0.0-5.0) Reactive Lymphs # 0.1 # k/uL # k/uL (0.0-0.8) D-Dimer Sodium Potassium Chloride Carbon Dioxide BUN Creatinine Est GFR ( Amer) Est GFR (Non-Af Amer) Glucose Calcium Total Bilirubin AST ALT Alkaline Phosphatase Creatine Kinase CK-MB (CK-2) Troponin I NT-Pro-B Natriuret Pep Total Protein Albumin - Orders Orders: ED Orders Category Date Time Status Continuous EKG monitoring Q30M Care 11/26/17 16:54 Active Continuous Pulse Oximetry Q30M Care 11/26/17 16:[address] IV Lock 1T Care 11/26/17 16:54 Active CHEST 1VIEW [RAD] Stat Exams 11/26/17 Completed BLOOD CULTURE Stat Lab 11/26/17 Ordered CBC/PLATELET/DIFF Routine Lab 11/26/17 17:06 Completed CKMB Stat Lab 11/26/17 17:06 Completed CMP Routine Lab 11/26/17 17:06 Completed CREATINE KINASE Routine Lab 11/26/17 17:06 Completed D DIMER Stat Lab 11/26/17 17:06 Completed D DIMER Stat Lab 11/26/17 18:51 Completed NT-proBNP Stat Lab 11/26/17 17:06 Completed TROPONIN I (cTnI) Stat Lab 11/26/17 17:06 Completed UA W/MICRO IF INDICATED Routine Lab 11/26/17 19:11 Ordered Furosemide [Lasix] Med 11/26/17 18:49 Discontinued 20 mg IVP NOW ONE Ipratropium/Albuterol Sulfate [Duoneb] Med 11/26/17 18:05 Discontinued 3 ml NEB NOW ONE Oxygen Daily Oxygen 11/26/17 17:00 Ordered EKG WITH COMPARISON Stat Ther 11/26/17 16:54 Ordered <Jennifer Henriquez - Last Filed: 11/26/17 19:29> - Lab Results Lab Results: Lab Results 11/26/17 17:06 WBC 8.30 K/ul K/ul (4.00-12.00) RBC 2.83 M/ul L M/ul (3.90-5.20) Hgb 8.3 g/dL L g/dL (12.0-16.0) Hct 28.3 % L % (34.5-46.5) MCV 99.8 fl fl (80.0-100.0) MCH 29.2 pg pg (28.0-34.0) MCHC 29.2 g/dL L g/dL (30.0-36.0) RDW 14.1 % % (11.3-14.3) Plt Count 281 K/mm3 K/mm3 (130-400) Neut % (Auto) 81.9 % H % (39.0-79.0) Lymph % (Auto) 11.3 % L % (16.0-50.0) [place] % (Auto) 4.2 % % (0.0-11.0) Eos % (Auto) 1.3 % % (0.0-6.8) Baso % (Auto) 0.2 (0.0-1.5) Neut # (Auto) 6.8 # k/uL # k/uL (1.4-7.7) Lymph # (Auto) 0.9 # k/uL # k/uL (0.6-4.0) [place] # (Auto) 0.4 # k/uL # k/uL (0.0-0.9) Eos # (Auto) 0.1 # k/uL # k/uL (0.0-0.6) Baso # (Auto) 0.0 # k/uL # k/uL (0.0-0.5) Reactive Lymphs % 1.2 % % (0.0-5.0) Reactive Lymphs # 0.1 # k/uL # k/uL (0.0-0.8) - Orders Orders: ED Orders Category Date Time Status Continuous EKG monitoring Q30M Care 11/26/17 16:54 Active Continuous Pulse Oximetry Q30M Care 11/26/17 16:[address] IV Lock 1T Care 11/26/17 16:54 Active CHEST 1VIEW [RAD] Stat Exams 11/26/17 Ordered CBC/PLATELET/DIFF Routine Lab 11/26/17 17:06 Completed CKMB Stat Lab 11/26/17 17:06 Received CMP Routine Lab 11/26/17 17:06 Received CREATINE KINASE Routine Lab 11/26/17 17:06 Received D DIMER Stat Lab 11/26/17 17:06 Received NT-proBNP Stat Lab 11/26/17 17:06 Received TROPONIN I (cTnI) Stat Lab 11/26/17 17:06 Received Oxygen Daily Oxygen 11/26/17 17:00 Ordered EKG WITH COMPARISON Stat Ther 11/26/17 16:54 Ordered <Rodrigo Medrano Last Filed: 11/29/17 12:08> General Adult Physical Exam - PHYSICAL EXAM GENERAL APPEARANCE: moderate distress EENT: pharynx normal NECK: normal inspection, supple RESPIRATORY: wheezes, rales CVS: reg rate & rhythm, heart sounds normal ABDOMEN: soft, no organomegaly, normal bowel sounds BACK: normal inspection SKIN: warm/dry, normal color EXTREMITIES: non-tender, normal range of motion, no evidence of injury NEURO: motor nml, sensation nml, other (baseline mental status) <Rodrigo Medrano - Last Filed: 11/29/17 12:08> Discharge <Jennifer Henriquez - Last Filed: 11/26/17 19:29> Decision to Admit: [id number] Decision Time: 19:45 <Rodrigo Medrano - Last Filed: 11/29/17 12:08> Clincal Impression: Anemia, COPD, Right upper lobe pulmonary infiltrate Dyspnea Qualifiers: Dyspnea type: unspecified Qualified Code(s): R06.00 - Dyspnea, unspecified Condition: Stable Disposition: 09 ADMITTED INPATIENT
[2017-11-26] MEDS ORDERED: IPRATROPIUM/ALBUTEROL SULFATE 3 ML AMPUL.NEB NEB ONE (18:05)
--- NOTE | 2017-11-26 18:28 | Diagnostic Imaging Report ---
[facility] [address] [facility].[address] [address] Report Submission Date: Nov 26, 2017 6:13:59 PM CDT Patient Study Name: ZOYA MARTIN Date: Nov 26, 2017 5:24:11 PM CDT Modality Type: DX Gender: F Description: CHEST : 52 Institution: [facility] Physician: JAZZY MULLER Portable view chest Clinical history: Short of breath Findings: The heart size is mildly enlarged. No pleural effusion or pneumothorax. There is right upper lobe pleural base infiltrating and noted which joint appears worse on today's exam. Impression: Increasing right upper lobe pleural base infiltrate. Electronically signed on Nov 26, 2017 6:13:59 PM CDT by: Yovani STRINGER
[2017-11-26] MEDS ORDERED: FUROSEMIDE 20 MG/2 ML VIAL IVP ONE (18:49)
--- NOTE | 2017-11-26 20:42 | History and Physical Report ---
History of Present Illnes - History of Present Illness Reason for Visit: dyspnea, chest pin History of Present Illness: Patient is a 66-year-old white female who resides at [facility]. Patient was recently admitted to the hospital several weeks ago for community acquired pneumonia. Patient has been his treatment associated with this. Patient stated her breathing did appear to return to baseline. However on the day of admission patient does having some increasing shortness of breath. Patient was noted to have some mild wheezing and SaO2 drop down to 82% on 2 L of oxygen. Oxygen was increased up to four leaders and SaO2 increased up to 90%. Patient at the intermediate was complaining of some mild chest discomfort. Patient was subsequently transferred to the ED for further evaluation. Patient states that she has been under a lot of stress at the intermediate believes that that is what is precipitated her chest pain. When she arrived in the emergency room patient with no longer having any chest pain. Patient had a chest x-ray done which did show a little bit a progression of her previous infiltrate. Patient was noted to be hypoxic. Patient was given DuoNeb treatments with improvement. Patient BNP was elevated. A CT scan cannot be done due to elevated BUN and creatinine. Patient was subsequently admitted to the hospital for further care and evaluation. It was felt that the patient seven exacerbation of her COPD. However since the patient has been on antibiotic therapy for a community acquired pneumonia and did have some slight progression of her infiltrate patient was started on antibiotic therapy for blood cultures were drawn. - Past Medical History Cardiac: CHF, HTN, Hyperlipidemia Pulmonary: COPD SLIDE MAKER: Dementia Gastrointestinal: Constipation, GERD Heme/Onc: Anemia NOS Psych: Anxiety, Depression Renal/: Chronic renal insuff - Past Surgical History Past Surgical History: Cholecystectomy, Cataract Removal - Past Family History Mother Family History: (86yo alz dementia) Father Family History: (88yo advanced age) - Past Social History Smoke: <1 pack per day (14 cigarettes/day) Occupation: retired Alcohol: None Lives: [facility] Domestic Violence: Negative - Health Maintenance Health Maintenance: Influenza Vaccine, Pneumococcal Vaccine Pneumonia Vaccine: Yes Resuscitation Status: Resusciation Status Resuscitation Status Do Not Resuscitate - Unable to Obtain History Unable to Obtain: No Review of Systems - Review of Systems Constitutional: Weakness. negative: Fever, Chills, Sweats Eyes: negative: pain, vision change ENT: negative: Ear Pain, Ear Discharge, Nose Pain, Nose Discharge, Nose Congestion, Mouth Pain, Mouth Swelling, Throat Pain, Throat Swelling Respiratory: Cough, Shortness of Breath, SOB with Excertion, Sputum (mild clear). negative: Hemoptysis, Pleuritic Pain Cardiovascular: Chest Pain. negative: Palpitations, Orthopnea, Paroxysmal Noc. Dyspnea, Edema, Light Headedness Gastrointestinal: negative: Nausea, Vomiting, Abdominal Pain, Diarrhea, Constipation, Melena, Hematochezia Genitourinary: negative: Dysuria, Frequency, Incontinence, Hematuria Musculoskeletal: Back Pain Skin: negative: Rash, Lesions Neurological: negative: Weakness, Numbness, Incoordination, Change in Speech, Confusion - Medications/Allergies Allergies/Adverse Reactions: Allergies Allergy/AdvReac Type Severity Reaction Status Date / Time aspirin Allergy Verified 11/26/17 18:17 Current Inpatient Medications: Current Inpatient Medications Albuterol/Ipratropium (Duoneb) 3 ml NEB Q4 JAMES Atorvastatin Calcium (Lipitor) 40 mg PO HS JAMES Clonazepam (Klonopin) 0.25 mg PO BID [facility] Docusate Sodium (Colace) 100 mg PO DAILY JAMES Donepezil HCl (Aricept) 10 mg PO HS [facility] Enoxaparin Sodium (Lovenox) 60 mg SQ QD [facility] Stop: 12/10/17 20:59 Ferrous Sulfate (Feosol) 325 mg PO 1100 JAMES Furosemide (Lasix) mg PO BID JAMES Gabapentin (Neurontin) 100 mg PO TID JAMES Lisinopril (Prinivil) 30 mg PO DAILY [facility] Melatonin (Melatonin) 3 mg PO HS [facility] Mirtazapine (Remeron) 7.5 mg PO HS [facility] Pantoprazole Sodium (Protonix) 40 mg PO 0700 [facility] Risperidone (Risperdal) 0.25 mg PO HS JAMES Trazodone HCl (Desyrel) 100 mg PO HS [facility] Venlafaxine HCl (Effexor Xr) 150 mg PO AM JAMES Venlafaxine HCl (Effexor Xr) 75 mg PO PM [facility] Exam - Exam Vital Signs: Vital Signs (72 hours) 11/26/17 11/26/17 11/26/17 16:53 16:54 18:00 Temperature 100.2 F H Pulse Rate 88 81 Pulse Rate [ 88 Left Pulse ox] Respiratory 18 Rate Blood Pressure 134/57 [Right Arm] O2 Sat by Pulse 93 97 96 Oximetry 11/26/17 11/26/17 11/26/17 18:30 19:00 19:29 Temperature Pulse Rate 82 81 78 Pulse Rate [ Left Pulse ox] Respiratory Rate Blood Pressure [Right Arm] O2 Sat by Pulse 93 85 L 97 Oximetry General: Alert, Oriented to Person, Oriented to Place, Cooperative, No acute distress. No: Oriented to Time HEENT: Atraumatic, PERRLA, EOMI, Mouth Mucous membr. moist/[place], Nose Mucous membr. moist/[place], Hearing Grossly Normal Neck: Normal Range of Motion. No: Stridor, Rigidity, Lymphadenopathy Carotids: WNL Thyroid: WNL Lungs: Normal air movement, Speaks full Sentences, Respiratory Distress (mild), Wheezes (mild expir), Rales (r lower lobe) Cardiovascular: Regular rate, Normal S1, Normal S2, No murmurs Abdomen: Normal bowel sounds, Soft, No tenderness, No hepatospenomegaly, No masses Integumentary: Normal, [place], Warm, Dry Extremities: No clubbing, No cyanosis, No edema Neurological: Normal speech, Strength Equal Bilat, Normal tone, Sensation intact, Cranial nerves 3-12 NL Psych/Mental Status: Mood NL, Appropriate Affect. No: Mental status NL, Intact Judgment - Laboratory Results Laboratory Results: Laboratory Results 11/26/17 11/26/17 11/26/17 17:06 17:06 17:06 WBC 8.30 RBC 2.83 L Hgb 8.3 L Hct 28.3 L MCV 99.8 MCH 29.2 MCHC 29.2 L RDW 14.1 Plt Count 281 Neut % (Auto) 81.9 H Lymph % (Auto) 11.3 L [place] % (Auto) 4.2 Eos % (Auto) 1.3 Baso % (Auto) 0.2 Neut # (Auto) 6.8 Lymph # (Auto) 0.9 [place] # (Auto) 0.4 Eos # (Auto) 0.1 Baso # (Auto) 0.0 Reactive Lymphs % 1.2 Reactive Lymphs # 0.1 D-Dimer > 5000 H Sodium 140 Potassium 4.4 Chloride 102 Carbon Dioxide 29 BUN 27 H Creatinine 2.30 H Est GFR ( Amer) 27 L Est GFR (Non-Af Amer) 23 L Glucose 100 Calcium 7.4 L Total Bilirubin 0.1 L AST 16 ALT 24 Alkaline Phosphatase 98 Creatine Kinase 81 CK-MB (CK-2) 13.0 H Troponin I 0.01 L NT-Pro-B Natriuret Pep 3180.1 H Total Protein 6.8 Albumin 3.3 L 11/26/17 18:51 WBC RBC Hgb Hct MCV MCH MCHC RDW Plt Count Neut % (Auto) Lymph % (Auto) [place] % (Auto) Eos % (Auto) Baso % (Auto) Neut # (Auto) Lymph # (Auto) [place] # (Auto) Eos # (Auto) Baso # (Auto) Reactive Lymphs % Reactive Lymphs # D-Dimer 4843 H Sodium Potassium Chloride Carbon Dioxide BUN Creatinine Est GFR ( Amer) Est GFR (Non-Af Amer) Glucose Calcium Total Bilirubin AST ALT Alkaline Phosphatase Creatine Kinase CK-MB (CK-2) Troponin I NT-Pro-B Natriuret Pep Total Protein Albumin Assessment/Plan - Assessment/Plan (1) COPD exacerbation Status: Acute Assessment: Will start steroid therapy, continue supplemental oxygen therapy. Duoneb treatments (2) Anemia, iron deficiency Status: Chronic Assessment: will monitor H & H. (3) Chronic kidney disease Status: Chronic Assessment: stable (4) Alzheimer's dementia Status: Chronic Assessment: will continue present home medications VTE Assessment - RISK FACTOR SCORE VTE RISK FACTOR SCORES: AGE OVER 60 YEARS, ACUTE RESPIRATORY FAILURE/SEVERE COPD - RISK VTE MODERATE RISK: SCORE OF 2 (RISK PROXIMAL DVT 2-4%) PROPHYAXIS NEEDED
[2017-11-26] MEDS ORDERED: FUROSEMIDE 40 MG TABLET PO SCH (21:00)
[2017-11-26] MEDS ORDERED: HYDROcodone /APAP 5/325 1 EACH TABLET PO SCH (21:00)
[2017-11-26] MEDS: IPRATROPIUM/ALBUTEROL SULFATE 3 ML AMPUL.NEB NEB SCH (21:13)
[2017-11-26] MEDS: ATORVASTATIN CALCIUM 80 MG TABLET PO SCH (21:32)
[2017-11-26] MEDS: VENLAFAXINE HCL 37.5 MG CAP.ER.24H PO SCH (21:33)
[2017-11-26] MEDS: risperiDONE 0.5 MG TABLET PO SCH (21:34)
[2017-11-26] MEDS: traZODone HCL 50 MG TABLET PO SCH (21:34)
[2017-11-26] MEDS: MELATONIN 3 MG TABLET PO SCH (21:34)
[2017-11-26] MEDS: DONEPEZIL HCL 5 MG TABLET PO SCH (21:35)
[2017-11-26] MEDS: MIRTAZAPINE 15 MG TABLET PO SCH (21:35)
[2017-11-26] MEDS: ENOXAPARIN SODIUM 60 MG/0.6 ML DISP.SYRIN SQ SCH (21:36)
[2017-11-26] MEDS: PIPERACILLIN SODIUM/TAZOBACTAM 3.375 GM VIAL IV SCH (21:36)
[2017-11-26] MEDS: clonazePAM 0.5 MG TABLET PO SCH (21:37)
[2017-11-26] MEDS: GABAPENTIN 100 MG CAPSULE PO SCH (21:39)
[2017-11-26 23:02] VITALS: BMI 22.8
[2017-11-27] MEDS: IPRATROPIUM/ALBUTEROL SULFATE 3 ML AMPUL.NEB NEB SCH ×6 (01:06→22:56)
[2017-11-27] MEDS: PIPERACILLIN SODIUM/TAZOBACTAM 3.375 GM VIAL IV SCH ×2 (01:06→05:50)
[2017-11-27] MEDS: PANTOPRAZOLE SODIUM 40 MG TABLET PO SCH (05:50)
[2017-11-27 07:10] LABS: BASOPHILS % 0.3 (0.0-1.5); EOSINOPHILS % 2.5 % (0.0-6.8); MEAN CORPUSCULAR HEMOGLOBIN 29.2 pg (28.0-34.0); MEAN CORPUSCULAR VOLUME 97.6 fl (80.0-100.0); MONOCYTES % 5.2 % (0.0-11.0); NEUTROPHILS # 4.1 # k/uL (1.4-7.7)
[2017-11-27 07:42] LABS: eGFR (Non-African) 24
[2017-11-27] MEDS: VENLAFAXINE HCL 37.5 MG CAP.ER.24H PO SCH ×2 (09:00→20:25)
[2017-11-27] MEDS: DOCUSATE SODIUM 100 MG CAPSULE PO SCH (09:00)
[2017-11-27] MEDS: LISINOPRIL 20 MG TABLET PO SCH (09:00)
[2017-11-27] MEDS: GABAPENTIN 100 MG CAPSULE PO SCH ×3 (09:01→18:02)
[2017-11-27] MEDS ORDERED: FUROSEMIDE 40 MG TABLET PO ONE (11:02)
[2017-11-27] MEDS ORDERED: PIPERACILLIN SODIUM/TAZOBACTAM 3.375 GM VIAL IV ONE ×2 (11:04→18:03)
[2017-11-27] MEDS: FERROUS SULFATE 325 MG TABLET PO SCH (11:10)
[2017-11-27] MEDS: PIPERACILLIN SODIUM/TAZOBACTAM 3.375 GM in 0.9 % SODIUM CHLORIDE 100 ML IV SCH ×2 (11:16→18:10)
[2017-11-27] MEDS: clonazePAM 0.5 MG TABLET PO SCH (11:17)
[2017-11-27] MEDS: DONEPEZIL HCL 5 MG TABLET PO SCH (20:25)
[2017-11-27] MEDS: traZODone HCL 50 MG TABLET PO SCH (20:25)
[2017-11-27] MEDS: ENOXAPARIN SODIUM 60 MG/0.6 ML DISP.SYRIN SQ SCH (20:26)
[2017-11-27] MEDS: MIRTAZAPINE 15 MG TABLET PO SCH (20:26)
[2017-11-27] MEDS: FUROSEMIDE 40 MG TABLET PO SCH (20:26)
[2017-11-27] MEDS: ATORVASTATIN CALCIUM 80 MG TABLET PO SCH (20:26)
[2017-11-27] MEDS: MELATONIN 3 MG TABLET PO SCH (20:26)
[2017-11-27] MEDS: risperiDONE 0.5 MG TABLET PO SCH (20:27)
[2017-11-27] MEDS ORDERED: HYDROcodone /APAP 5/325 1 EACH TABLET PO SCH (21:00)
--- NOTE | 2017-11-27 22:15 | Inpatient Progress Note ---
Subjective - Required Recertification Statement I anticipate X number of days because-include discharge plan: 1 day - Review of Systems Events since last encounter: Patient states she is feeling much better today. Patient that the most of her shortness of breath dyspnea have dissipated. Patient continues to have a cough describes it as being clear with no home offices noted. Patient is not had any fever or chills. Patient has been ambulating some without too much difficulties and feels that her breathing is back to her baseline. Patient denies any further chest pain. Objective - Exam Vitals and I&O: Vital Signs Temp 99.3 F 11/27/17 21:59 Pulse 82 11/27/17 21:59 Resp 22 11/27/17 21:59 BP 106/50 11/27/17 21:59 Pulse Ox 94 11/27/17 21:59 Intake & Output 11/26/17 11/27/17 11/27/17 23:59 11:59 23:59 Intake Total 0 220 1620 Output Total 400 Balance -519 959 2726 Weight 54.885 kg Intake: IV 20 distal left forearm 20 Oral 0 220 1600 Output: Urine 400 Other: Voiding Method Bedside Commode Bedside Commode Bedside Commode # Voids 2 1 General: Alert, Oriented to Person, Oriented to Place, Oriented to Time, No acute distress Neck: Supple, No JVD Lungs: Normal air movement, Speaks full Sentences, Rales (few rt). No: Wheezes, Rhonchi Cardiovascular: Regular rate, Normal S1, Normal S2, No murmurs Abdomen: Normal bowel sounds, Soft, No tenderness, No hepatospenomegaly, No masses Skin: Normal, [place], Warm, Dry Neurological: Normal gait, Normal speech Psych/Mental Status: Mental status NL, Mood NL, Appropriate Affect - Results Results: Laboratory Results WBC 5.80 K/ul (4.00-12.00) 11/27/17 05:30 RBC 2.51 M/ul (3.90-5.20) L 11/27/17 05:30 Hgb 7.3 g/dL (12.0-16.0) L 11/27/17 05:30 Hct 24.5 % (34.5-46.5) L 11/27/17 05:30 MCV 97.6 fl (80.0-100.0) 11/27/17 05:30 MCH 29.2 pg (28.0-34.0) 11/27/17 05:30 MCHC 30.0 g/dL (30.0-36.0) 11/27/17 05:30 RDW 14.3 % (11.3-14.3) 11/27/17 05:30 Plt Count 277 K/mm3 (130-400) 11/27/17 05:30 Neut % (Auto) 70.9 % (39.0-79.0) 11/27/17 05:30 Lymph % (Auto) 19.7 % (16.0-50.0) 11/27/17 05:30 [place] % (Auto) 5.2 % (0.0-11.0) 11/27/17 05:30 Eos % (Auto) 2.5 % (0.0-6.8) 11/27/17 05:30 Baso % (Auto) 0.3 (0.0-1.5) 11/27/17 05:30 Neut # (Auto) 4.1 # k/uL (1.4-7.7) 11/27/17 05:30 Lymph # (Auto) 1.1 # k/uL (0.6-4.0) 11/27/17 05:30 [place] # (Auto) 0.3 # k/uL (0.0-0.9) 11/27/17 05:30 Eos # (Auto) 0.1 # k/uL (0.0-0.6) 11/27/17 05:30 Baso # (Auto) 0.0 # k/uL (0.0-0.5) 11/27/17 05:30 Reactive Lymphs % 1.4 % (0.0-5.0) 11/27/17 05:30 Reactive Lymphs # 0.1 # k/uL (0.0-0.8) 11/27/17 05:30 D-Dimer 4843 ng/mL (6.0-682) H 11/26/17 18:51 Sodium 143 mmol/L (136-145) 11/27/17 05:30 Potassium 4.4 mmol/L (3.5-5.1) 11/27/17 05:30 Chloride 108 mmol/L (98-107) H 11/27/17 05:30 Carbon Dioxide 28 mmol/L (22-30) 11/27/17 05:30 BUN 28 mg/dL (7-17) H 11/27/17 05:30 Creatinine 2.20 mg/dL (0.52-1.04) H 11/27/17 05:30 Estimated Creat Clear 25 11/27/17 05:30 Est GFR ( Amer) 29 (60-) L 11/27/17 05:30 Est GFR (Non-Af Amer) 24 (60-) L 11/27/17 05:30 Glucose 79 mg/dL (74-106) 11/27/17 05:30 Calcium 7.4 mg/dL (8.4-10.2) L 11/27/17 05:30 Total Bilirubin < 0.1 mg/dL (0.2-1.3) L 11/27/17 05:30 AST 13 U/L (15-46) L 11/27/17 05:30 ALT 19 U/L (13-69) 11/27/17 05:30 Alkaline Phosphatase 83 U/L (38-126) 11/27/17 05:30 Creatine Kinase 81 U/L (30-135) 11/26/17 17:06 CK-MB (CK-2) 11.6 ng/mL (0.0-5.6) H 11/27/17 05:30 Troponin I < 0.03 ng/mL (0.03-0.06) L 11/27/17 05:30 NT-Pro-B Natriuret Pep 3180.1 pg/mL (15.0-125.0) H 11/26/17 17:06 Total Protein 5.2 g/dL (6.3-8.2) L 11/27/17 05:30 Albumin 2.6 g/dL (3.5-5.0) L 11/27/17 05:30 Assessment/Plan - Assessment/Plan (1) COPD exacerbation Status: Acute Current Visit: No Assessment: Patient will be continued on present medications and treatment at this time. Patient has had an elevated d-dimer. Will go ahead and get business Doppler study to her lower extremity tomorrow. Patient is on Lovenox therapy at this time. (2) Anemia, iron deficiency Status: Chronic Current Visit: No Assessment: Patient hemoglobin dropped from 8.3 to 7.3. Patient is not had any medicated Joan her hematemesis. This did this during her last admission also. Stools for blood him occult will be obtained. Will recheck hemoglobin hematocrit later today and then again in the morning. (3) Chronic kidney disease Status: Chronic Current Visit: No Assessment: BUN and creatinine are stable. (4) Alzheimer's dementia Status: Chronic Current Visit: No Assessment: Stable. (5) Elevated CK-MB level Status: Acute Current Visit: Yes Assessment: CK in the remain stable. Troponin is negative.. No acute changes noted on EKG.
[2017-11-28] MEDS: PIPERACILLIN SODIUM/TAZOBACTAM 3.375 GM in 0.9 % SODIUM CHLORIDE 100 ML IV SCH ×4 (00:30→17:30)
[2017-11-28] MEDS ORDERED: PIPERACILLIN SODIUM/TAZOBACTAM 3.375 GM VIAL IV ONE ×4 (01:14→16:53)
[2017-11-28] MEDS: IPRATROPIUM/ALBUTEROL SULFATE 3 ML AMPUL.NEB NEB SCH ×5 (01:26→17:14)
[2017-11-28] MEDS: PANTOPRAZOLE SODIUM 40 MG TABLET PO SCH (06:14)
[2017-11-28] MEDS: VENLAFAXINE HCL 37.5 MG CAP.ER.24H PO SCH (09:39)
[2017-11-28] MEDS: DOCUSATE SODIUM 100 MG CAPSULE PO SCH (09:39)
[2017-11-28] MEDS: FUROSEMIDE 40 MG TABLET PO SCH (09:39)
[2017-11-28] MEDS: GABAPENTIN 100 MG CAPSULE PO SCH ×3 (09:40→17:30)
[2017-11-28] MEDS: LISINOPRIL 20 MG TABLET PO SCH (09:40)
[2017-11-28 10:24] LABS: BASOPHILS % 0.3 (0.0-1.5); EOSINOPHILS % 2.2 % (0.0-6.8); MEAN CORPUSCULAR HEMOGLOBIN 28.5 pg (28.0-34.0); MEAN CORPUSCULAR VOLUME 103.1 fl (80.0-100.0); MONOCYTES % 3.6 % (0.0-11.0); NEUTROPHILS # 3.6 # k/uL (1.4-7.7)
[2017-11-28] MEDS: FERROUS SULFATE 325 MG TABLET PO SCH (11:42)
[2017-11-28 13:48] LABS: ANISOCYTOSIS 1+ (NEGATIVE)
[2017-11-28 13:49] LABS: HYPOCHROMASIA 1+ (NEGATIVE)
[2017-11-28 17:08] VITALS: BP 121/61
--- NOTE | 2017-11-28 17:26 | Diagnostic Imaging Report ---
ERYN COREY [facility] [id number] [address] Report Submission Date: Nov 28, 2017 3:28:35 PM CDT Patient Study Name: ZOYA MARTIN Date: Nov 28, 2017 2:41:17 PM CDT Modality Type: US Gender: F Description: BLEV : 52 Institution: [facility] Physician: ERYN COREY Bilateral lower extremity venous duplex History: Swelling Duplex color flow imaging was performed through the bilateral lower extremity femoral popliteal venous system revealing normal compression and normal augmentation from the common femoral veins to the popliteal veins bilaterally. However, the calf veins are not well visualized bilaterally. Impression: No evidence for deep venous thrombosis. However, the calf veins are not well visualized bilaterally. Electronically signed on Nov 28, 2017 3:28:35 PM CDT by: Maris STRINGER
--- NOTE | 2017-11-28 17:49 | Discharge Summary ---
Discharge Summary - Discharge Sumary History of Present Illness: Patient is a 66-year-old white female who resides at [facility]. Patient was recently admitted to the hospital several weeks ago for community acquired pneumonia. Patient has been his treatment associated with this. Patient stated her breathing did appear to return to baseline. However on the day of admission patient does having some increasing shortness of breath. Patient was noted to have some mild wheezing and SaO2 drop down to 82% on 2 L of oxygen. Oxygen was increased up to four leaders and SaO2 increased up to 90%. Patient at the group home was complaining of some mild chest discomfort. Patient was subsequently transferred to the ED for further evaluation. Patient states that she has been under a lot of stress at the group home believes that that is what is precipitated her chest pain. When she arrived in the emergency room patient with no longer having any chest pain. Patient had a chest x-ray done which did show a little bit a progression of her previous infiltrate. Patient was noted to be hypoxic. Patient was given DuoNeb treatments with improvement. Patient BNP was elevated. A CT scan cannot be done due to elevated BUN and creatinine. Patient was subsequently admitted to the hospital for further care and evaluation. It was felt that the patient seven exacerbation of her COPD. However since the patient has been on antibiotic therapy for a community acquired pneumonia and did have some slight progression of her infiltrate patient was started on antibiotic therapy for blood cultures were drawn. Condition at Discharge: Stable Home Medications: Ambulatory Orders Medication Instructions Recorded Atorvastatin Calcium 20 mg PO QDAY 02/09/17 Budesonide/Formoterol Fumarate 1 puff PO BID 02/09/17 [Symbicort 160-4.5 Mcg Inhaler] Gabapentin [Neurontin] 100 mg PO TID 02/09/17 HYDROcodone /APAP 5/325 [[place] 1 tab PO HS 02/09/17 5/325] Lansoprazole [Prevacid] 1 cap PO QDAY 02/09/17 Linaclotide [Linzess] 290 mcg PO QDAY 02/09/17 Lisinopril [Zestril] 30 mg PO HS 02/09/17 Melatonin [Melatin] 3 mg PO HS 02/09/17 Mirtazapine [Remeron] 7.5 mg PO HS 02/09/17 Venlafaxine HCl [Effexor Xr] 75 mg PO QDAY 02/09/17 Clonazepam [Klonopin] 1 tab PO BID 11/10/17 Clonazepam [Klonopin] 1 tab PO HS 11/10/17 Cyanocobalamin (Vitamin B-12) 1,000 mcg IM MONTH 11/10/17 [B-12 Compliance] Docusate Sodium [Colace] 1 tab PO DAILY 11/10/17 Donepezil HCl [Aricept] 1 tab PO HS 11/10/17 Ferrous Sulfate 1 tab PO DAILY 11/10/17 Furosemide [Lasix] 1 tab PO BID 11/10/17 Ipratropium/Albuterol Sulfate 1 vial INH QID 11/10/17 [Duoneb] Risperidone [Risperdal] 1 tab PO HS 11/10/17 Topiramate [Topamax] 1 tab PO BID 11/10/17 Trazodone HCl [Desyrel] 1 tab PO HS 11/10/17 Venlafaxine HCl [Venlafaxine HCl 1 tab PO DAILY 11/10/17 ER] Amoxicillin/Potassium Clav 1 each PO BID #10 tablet 11/28/17 [Augmentin 875-125 Tablet] Consultations this Visit: None Procedures this Visit: None Allergies/Adverse Reactions: Allergies Allergy/AdvReac Type Severity Reaction Status Date / Time aspirin Allergy Verified 11/26/17 18:17 Discharge Summary: Patient with maintain on supplemental oxygen to keep her SaO2 greater than 90%. Patient was started on DuoNeb treatments every four hours. Patient was started on IV steroids of Solu-Medrol. Patient did have a been a Doppler study done to rule out possible DVTs. was negative. Patient breathing status did improve during her hospitalization. At the time of dismissal was not quite at baseline the patient was tolerating her symptoms well. Patient continues to be sent some into the upper 80s with exertion. Patient was noted to be anemic with the hemoglobin 8.3. Drop down to 7.0. Stool hemacultss were negative. Patient does have a history of iron deficiency anemia. Patient tolerated the hemoglobin of 7.0 well. Patient did not have any tachycardia or hypertension. It was elected to the let her PCP decide if transfusions were indicated at this time. Patient chronic kidney disease remains stable with creatinine at 2.3. BUN improved from 27 to 23. Patient was noted to have elevated CK in the on admission at 13.6. Patient troponin was negative. Patient denied any chest pain. EKG remain stable without any acute changes. This remain stable during the hospitalization. At the time of dismissal was felt that the patient could be managed on an outpatient basis and was subsequently discharged back to [facility] in stable condition. - Final Diagnosis (1) COPD exacerbation Problems: Patient was started on (2) Anemia, iron deficiency Problems: pat is stable with hemoglobin of 7.0. Patient may need transfusion but will leave this up to PCP to decide. (3) Chronic kidney disease Problems: Creatinine and BUN stable (4) Alzheimer's dementia Problems: stable, (5) Elevated CK-MB level Problems: no history of chest pain, troponins remain negative. EKGs no acute changes.
[2017-11-28] MEDS ORDERED: LORazepam 0.5 MG TABLET PO SCH (21:00)
== END 2017-11-28 18:00 | DRG 191 ==
LOC: ED 16:51 → SOUTH 19:58
PROVIDERS: ADMIT Family Medicine; ATTEND Family Medicine
DX: J44.1 Chronic obstructive pulmonary disease with (acute) exacerbation (principal); I13.0 Hypertensive heart and chronic kidney disease with heart failure and stage 1 through stage 4 chronic kidney disease, or unspecified chronic kidney disease; D50.9 Iron deficiency anemia, unspecified; F17.210 Nicotine dependence, cigarettes, uncomplicated; N18.9 Chronic kidney disease, unspecified; I50.9 Heart failure, unspecified; G30.9 Alzheimer's disease, unspecified; F02.80 Dementia in other diseases classified elsewhere, unspecified severity, without behavioral disturbance, psychotic disturbance, mood disturbance, and anxiety; E78.5 Hyperlipidemia, unspecified
CPT/HCPCS: 36415; 71045; 80053; 82550; 82553; 83880; 84484; 85025; 85379; 87040; 93005; 93970; 94640; 94760; A9270; J1650; J1940; J2543; 96374; 99222; 99232; 99238; S1016

== ENCOUNTER 2017-12-07 08:16 | Outpatient (CLI) | payer MEDICARE, OTHER ==
[2017-12-07] MEDS ORDERED: FUROSEMIDE 40 MG TABLET PO ONE (12:13)
[2017-12-07] MEDS ORDERED: MIRTAZAPINE 15 MG TABLET PO ONE ×2 (12:14→20:38)
[2017-12-07] MEDS ORDERED: MELATONIN 3 MG TABLET PO ONE ×2 (12:14→20:37)
[2017-12-07] MEDS ORDERED: traZODone HCL 50 MG TABLET ONE ×2 (12:14→20:38)
[2017-12-07] MEDS ORDERED: ACETAMINOPHEN 325 MG TABLET ONE (12:14)
[2017-12-07] MEDS ORDERED: diphenhydrAMINE HCL 25 MG TABLET PO ONE (12:15)
[2017-12-07] MEDS ORDERED: 0.9 % SODIUM CHLORIDE 100 ML IV ONE ×2 (12:15→16:16)
[2017-12-07] MEDS ORDERED: IPRATROPIUM/ALBUTEROL SULFATE 3 ML AMPUL.NEB NEB ONE ×2 (12:15→20:36)
== END 2017-12-07 08:17 ==
LOC: OUT 08:16
PROVIDERS: ATTEND Nurse Practitioner Adult Health
DX: D64.9 Anemia, unspecified (principal)
CPT/HCPCS: 36415; Q0163; 36430; P9040